=== PATIENT | female | born 1945 | race Caucasian/White ===

== ENCOUNTER 2019-08-15 15:21 | Inpatient (IN) ==
[2019-08-15] MEDS ORDERED: FUROSEMIDE 40 MG/4 ML VIAL IV STA (17:03)
[2019-08-15 17:07] LABS: Basophils % 0.6 % (0.0-0.8); Eosinophils # 0.2 10*3/uL (0.0-0.87); Eosinophils % 2.8 % (0.00-10.9); Hematocrit 23.4 VOL% (35.7-47.0); Hemoglobin 6.5 GM/DL (12.0-16.0); Immature Granulocytes % 0.6 %; Immature Granulocytes Absolute 0.03 #; Lymphocytes % 18.5 % (21.3-54.2); Mean Corpuscular HGB Conc 27.8 GM/DL (32-36); Mean Corpuscular Volume 92.5 FL (87-102); Mean Platelet Volume 12.4 FL (9.6-12.0); Monocytes % 12.3 % (1.7-12.7); Neutrophils % 65.2 % (38.7-73.9); Platelet Count 208 T/CUMM (130-400); Red Blood Count 2.53 MC/CUMM (3.8-5.5); Red Cell Distribution Width 15.9 % (9.3-17.3); White Blood Count 5.4 T/CUMM (4-12)
[2019-08-15 17:22] LABS: Albumin 2.5 G/DL (3.4-5.0); Bilirubin,Total 0.5 MG/DL (0.2-1.0); Osmolality,Calculated 288.5 MOS/KG (273-304)
[2019-08-15 17:35] LABS: Anisocytosis Slight; Macrocytosis Slight; Microcytosis Slight; Platelet Estimate Normal
[2019-08-15 17:36] LABS: Hypochromasia Slight
[2019-08-15 17:42] LABS: Apearance,Urine CLEAR (Clear); Bacteria,Urine Occasional /HPF (Few); Bilirubin,Urine Negative (Negative); Blood, Urine Negative (Negative); Glucose,Urine (UA) Negative (Negative); Hyaline Casts,Urine 2 /LPF (0-3); Ketones,Urine Negative (Negative); Nitrite,Urine Negative (Negative); Protein,Urine Negative; Squamous Epithelial Cell,Urine Occasional /HPF (0-10); Urine Color Yellow (Yellow); Urine Specific Gravity 1.008 (1.001-1.035); Urine Urobilinogen < 2.0 EU/DL (0.2-1.0)
[2019-08-15] MEDS ORDERED: ACETAMINOPHEN 325 MG TABLET PO PRN (17:45)
[2019-08-15] MEDS ORDERED: ONDANSETRON 4 MG/2 ML VIAL IV PRN (17:45)
[2019-08-15] MEDS ORDERED: DEXTROSE 50% 25 GM/50 ML VIAL IV PRN ×3 (17:45→18:20)
[2019-08-15] MEDS ORDERED: GLUCAGON 1 MG VIAL IM PRN ×3 (17:45→18:20)
[2019-08-15] MEDS ORDERED: SODIUM CHLORIDE 0.9% 1,000 ML IV PRN (17:48)
[2019-08-15] MEDS ORDERED: DEXTROSE 10% 250 ML BAG IV PRN (18:25)
[2019-08-15] MEDS: INSULIN LISPRO 100 UNIT/ML SUBCUT SCH (20:30)
[2019-08-15] MEDS ORDERED: carvediloL 3.125 MG TABLET PO SCH (21:00)
[2019-08-15] MEDS ORDERED: AMIODARONE 200 MG TABLET PO SCH (21:00)
[2019-08-15] MEDS: BENZONATATE 100 MG CAPSULE PO PRN (21:02)
[2019-08-16] MEDS: POTASSIUM CHLORIDE 20 MEQ TABLET PO PRN ×4 (00:29→06:12)
[2019-08-16 06:14] LABS: Basophils # 0.1 10*3/uL (0.0-0.2); Basophils % 0.8 % (0.0-0.8); Eosinophils # 0.1 10*3/uL (0.0-0.87); Eosinophils % 2.2 % (0.00-10.9); Hemoglobin 6.7 GM/DL (12.0-16.0); Immature Granulocytes % 0.3 %; Immature Granulocytes Absolute 0.02 #; Lymphocytes # 1.3 10*3/uL (1.4-4.0); Lymphocytes % 21.2 % (21.3-54.2); Mean Corpuscular HGB Conc 29.1 GM/DL (32-36); Mean Corpuscular Volume 90.2 FL (87-102); Mean Platelet Volume 12.1 FL (9.6-12.0); Monocytes % 13.4 % (1.7-12.7); Neutrophils % 62.1 % (38.7-73.9); Platelet Count 198 T/CUMM (130-400); Red Blood Count 2.55 MC/CUMM (3.8-5.5); Red Cell Distribution Width 15.2 % (9.3-17.3); White Blood Count 6.3 T/CUMM (4-12)
[2019-08-16 06:37] LABS: Calcium 7.7 MG/DL (8.5-10.1); Osmolality,Calculated 288.1 MOS/KG (273-304)
[2019-08-16] MEDS: INSULIN LISPRO 100 UNIT/ML SUBCUT SCH ×4 (07:54→20:26)
[2019-08-16] MEDS: LEVOTHYROXINE 75 MCG TABLET PO SCH (08:55)
[2019-08-16] MEDS: FUROSEMIDE 40 MG/4 ML VIAL IV SCH ×2 (09:00→16:41)
[2019-08-16 09:19] LABS: Hemoglobin 7.2 GM/DL (12.0-16.0)
[2019-08-16] MEDS: BENZONATATE 100 MG CAPSULE PO PRN (12:41)
[2019-08-17 06:05] LABS: Basophils % 0.5 % (0.0-0.8); Eosinophils # 0.2 10*3/uL (0.0-0.87); Eosinophils % 2.7 % (0.00-10.9); Hematocrit 24.1 VOL% (35.7-47.0); Hemoglobin 7.1 GM/DL (12.0-16.0); Immature Granulocytes % 0.2 %; Immature Granulocytes Absolute 0.01 #; Lymphocytes # 1.5 10*3/uL (1.4-4.0); Lymphocytes % 23.3 % (21.3-54.2); Mean Corpuscular HGB Conc 29.5 GM/DL (32-36); Mean Corpuscular Volume 88.9 FL (87-102); Mean Platelet Volume 11.6 FL (9.6-12.0); Monocytes % 14.2 % (1.7-12.7); Neutrophils % 59.1 % (38.7-73.9); Platelet Count 204 T/CUMM (130-400); Red Blood Count 2.71 MC/CUMM (3.8-5.5); Red Cell Distribution Width 15.7 % (9.3-17.3); White Blood Count 6.4 T/CUMM (4-12)
[2019-08-17 06:53] LABS: Calcium 8.3 MG/DL (8.5-10.1); Osmolality,Calculated 280.7 MOS/KG (273-304); Thyroid Stimulating Hormone 6.5 uIU/ml (0.358-3.74)
[2019-08-17] MEDS: INSULIN LISPRO 100 UNIT/ML SUBCUT SCH ×4 (07:40→20:03)
[2019-08-17] MEDS: LEVOTHYROXINE 75 MCG TABLET PO SCH (08:29)
[2019-08-17] MEDS: FUROSEMIDE 40 MG/4 ML VIAL IV SCH ×2 (08:30→16:30)
[2019-08-17] MEDS: guaiFENesin 200 MG/10 ML UDCUP PO PRN (10:50)
[2019-08-17] MEDS: PANTOPRAZOLE 40 MG VIAL IV SCH (12:30)
[2019-08-17] MEDS ORDERED: LOPERAMIDE 2 MG CAPSULE PO ONE (12:56)
[2019-08-17] MEDS: LOPERAMIDE 2 MG CAPSULE PO PRN (21:27)
[2019-08-18 07:13] LABS: Basophils % 0.4 % (0.0-0.8); Eosinophils # 0.2 10*3/uL (0.0-0.87); Eosinophils % 2.3 % (0.00-10.9); Hematocrit 26.7 VOL% (35.7-47.0); Hemoglobin 7.8 GM/DL (12.0-16.0); Immature Granulocytes % 0.4 %; Immature Granulocytes Absolute 0.03 #; Lymphocytes # 1.8 10*3/uL (1.4-4.0); Lymphocytes % 24.1 % (21.3-54.2); Mean Corpuscular HGB Conc 29.2 GM/DL (32-36); Mean Platelet Volume 12.3 FL (9.6-12.0); Neutrophils % 60.8 % (38.7-73.9); Platelet Count 262 T/CUMM (130-400); Red Cell Distribution Width 15.7 % (9.3-17.3); White Blood Count 7.4 T/CUMM (4-12)
[2019-08-18 07:29] LABS: Calcium 8.7 MG/DL (8.5-10.1); Osmolality,Calculated 280.7 MOS/KG (273-304)
[2019-08-18] MEDS: INSULIN LISPRO 100 UNIT/ML SUBCUT SCH ×4 (08:03→21:10)
[2019-08-18] MEDS: LACTATED RINGERS 1,000 ML IV SCH (09:08)
[2019-08-18] MEDS: FUROSEMIDE 40 MG/4 ML VIAL IV SCH (10:02)
[2019-08-18] MEDS: POTASSIUM CHLORIDE 20 MEQ TABLET PO PRN ×3 (10:02→16:00)
[2019-08-18] MEDS: PANTOPRAZOLE 40 MG VIAL IV SCH (10:02)
[2019-08-18] MEDS: LEVOTHYROXINE 75 MCG TABLET PO SCH (10:02)
[2019-08-18] MEDS ORDERED: BISACODYL 5 MG TABLET PO ONE (15:42)
[2019-08-18] MEDS ORDERED: POLYETHYLENE GLYCOL POWDER 255 GM BOTTLE PO ONE (15:43)
[2019-08-18] MEDS ORDERED: MAGNESIUM CITRATE 300 ML BOTTLE PO ONE (21:00)
[2019-08-19 07:21] LABS: Calcium 8.3 MG/DL (8.5-10.1); Osmolality,Calculated 281.5 MOS/KG (273-304)
[2019-08-19 07:34] LABS: Basophils % 0.5 % (0.0-0.8); Eosinophils # 0.1 10*3/uL (0.0-0.87); Hematocrit 27.4 VOL% (35.7-47.0); Hemoglobin 8.1 GM/DL (12.0-16.0); Immature Granulocytes % 0.4 %; Immature Granulocytes Absolute 0.02 #; Lymphocytes % 17.7 % (21.3-54.2); Mean Corpuscular HGB Conc 29.6 GM/DL (32-36); Mean Corpuscular Volume 90.1 FL (87-102); Mean Platelet Volume 12.1 FL (9.6-12.0); Monocytes % 10.9 % (1.7-12.7); Neutrophils % 68.5 % (38.7-73.9); Platelet Count 204 T/CUMM (130-400); Red Blood Count 3.04 MC/CUMM (3.8-5.5); Red Cell Distribution Width 15.8 % (9.3-17.3); White Blood Count 5.6 T/CUMM (4-12)
[2019-08-19] MEDS: INSULIN LISPRO 100 UNIT/ML SUBCUT SCH ×4 (08:21→21:26)
[2019-08-19] MEDS: LACTATED RINGERS 1,000 ML IV SCH (08:22)
[2019-08-19] MEDS ORDERED: LACTATED RINGERS 1,000 ML IV SCH (08:50)
[2019-08-19] MEDS ORDERED: LIDOCAINE 2% 5 ML VIAL ONE (08:51)
[2019-08-19] MEDS ORDERED: propofoL 200 MG/20 ML VIAL IV ONE (08:51)
[2019-08-19] MEDS: LEVOTHYROXINE 75 MCG TABLET PO SCH (10:13)
[2019-08-19] MEDS: LOPERAMIDE 2 MG CAPSULE PO PRN (10:14)
[2019-08-19] MEDS: POTASSIUM CHLORIDE 20 MEQ TABLET PO PRN ×4 (10:14→17:19)
[2019-08-19] MEDS: PANTOPRAZOLE 40 MG VIAL IV SCH (10:14)
[2019-08-19] MEDS: FUROSEMIDE 40 MG TABLET PO SCH (10:14)
[2019-08-19] MEDS: BENZONATATE 100 MG CAPSULE PO PRN (15:42)
[2019-08-19] MEDS: guaiFENesin 200 MG/10 ML UDCUP PO PRN (21:31)
[2019-08-20 06:38] LABS: Calcium 7.9 MG/DL (8.5-10.1); Osmolality,Calculated 282.5 MOS/KG (273-304)
[2019-08-20 08:17] LABS: Basophils % 0.6 % (0.0-0.8); Eosinophils # 0.1 10*3/uL (0.0-0.87); Eosinophils % 1.9 % (0.00-10.9); Hematocrit 24.6 VOL% (35.7-47.0); Hemoglobin 7.1 GM/DL (12.0-16.0); Immature Granulocytes % 0.5 %; Immature Granulocytes Absolute 0.03 #; Lymphocytes # 1.3 10*3/uL (1.4-4.0); Lymphocytes % 21.2 % (21.3-54.2); Mean Corpuscular HGB Conc 28.9 GM/DL (32-36); Mean Corpuscular Volume 91.4 FL (87-102); Mean Platelet Volume 12.1 FL (9.6-12.0); Neutrophils % 63.8 % (38.7-73.9); Platelet Count 204 T/CUMM (130-400); Red Blood Count 2.69 MC/CUMM (3.8-5.5); Red Cell Distribution Width 15.8 % (9.3-17.3); White Blood Count 6.3 T/CUMM (4-12)
[2019-08-20 08:37] LABS: Eosinophils 2 % (0-10); Hypochromasia 1+; Lymphocytes 18 % (20-55); Platelet Estimate Adequate; Segmented Neutrophils 67 % (50-85); Total Cells Counted 100
[2019-08-20 08:38] LABS: Ovalocytes Slight
[2019-08-20] MEDS: INSULIN LISPRO 100 UNIT/ML SUBCUT SCH ×3 (08:48→16:45)
[2019-08-20] MEDS: guaiFENesin 200 MG/10 ML UDCUP PO PRN (08:49)
[2019-08-20] MEDS ORDERED: SODIUM CHLORIDE 0.9% 1,000 ML IV PRN (08:57)
[2019-08-20] MEDS: PANTOPRAZOLE 40 MG VIAL IV SCH (09:15)
[2019-08-20] MEDS: FUROSEMIDE 40 MG TABLET PO SCH (09:16)
[2019-08-20] MEDS: LEVOTHYROXINE 75 MCG TABLET PO SCH (09:16)
[2019-08-20] MEDS ORDERED: propofoL 200 MG/20 ML VIAL IV ONE (10:00)
[2019-08-20] MEDS ORDERED: LIDOCAINE 2% 5 ML VIAL ONE (10:00)
[2019-08-20 16:42] LABS: Hematocrit 29.8 VOL% (35.7-47.0)
[2019-08-20 16:44] LABS: Hemoglobin 8.7 GM/DL (12.0-16.0)
[2019-08-20 16:49] VITALS: BP 156/58
== END 2019-08-20 17:53 | disposition home or self-care (01) | DRG 377 ==
LOC: N.ED 15:21 → N.EDINP 17:45 → SUATTDRO 17:45 → N.3E 18:35
PROVIDERS: ADMIT Internal Medicine; ATTEND Family Medicine

== ENCOUNTER 2021-12-20 16:11 | Inpatient (IN) ==
[2021-12-20] MEDS ORDERED: PANTOPRAZOLE 40 MG VIAL IV STA (18:31)
[2021-12-20] MEDS ORDERED: SODIUM CHLORIDE 0.9% 500 ML IV STA (18:31)
[2021-12-20] MEDS ORDERED: ONDANSETRON 4 MG/2 ML VIAL IV STA (18:31)
[2021-12-20 18:55] LABS: Basophils % 0.4 % (0.0-0.8); Eosinophils % 0.6 % (0.00-10.9); Hematocrit 39.4 VOL% (35.7-47.0); Immature Granulocytes % 0.2 %; Immature Granulocytes Absolute 0.01 #; Lymphocytes # 1.2 10*3/uL (1.4-4.0); Lymphocytes % 21.5 % (21.3-54.2); Mean Corpuscular Volume 98.7 FL (87-102); Mean Platelet Volume 12.8 FL (9.6-12.0); Monocytes # 0.2 10*3/uL (0.11-0.8); Monocytes % 4.2 % (1.7-12.7); Neutrophils % 73.1 % (38.7-73.9); Platelet Count 121 T/CUMM (130-400); Red Blood Count 3.99 MC/CUMM (3.8-5.5); Red Cell Distribution Width 12.4 % (9.3-17.3); White Blood Count 5.4 T/CUMM (4-12)
[2021-12-20 19:11] LABS: RBC,Urine 1 /HPF (0-4)
[2021-12-20 19:12] LABS: Bilirubin,Urine Negative (Negative); Blood, Urine Negative (Negative); Glucose,Urine (UA) Negative (Negative); Ketones,Urine Negative (Negative); Nitrite,Urine Negative (Negative); Protein,Urine Trace mg/dL (Negative); Urine Appearance Clear (Clear); Urine Color Yellow (Yellow); Urine Urobilinogen 0.2 eU/dL (<2.0)
[2021-12-20] MEDS ORDERED: LABETALOL 20 MG/4 ML SYRINGE IV STA (19:12)
[2021-12-20 19:15] LABS: Albumin 3.7 G/DL (3.4-5.0); Bilirubin,Total 0.6 MG/DL (0.20-1.00); Calcium 9.2 MG/DL (8.5-10.1); Potassium 4.3 MMOL/L (3.5-5.1); Total Protein 7.2 G/DL (6.4-8.2)
[2021-12-20] MEDS ORDERED: HYDROmorphone 1 MG/1 ML SYRINGE IV PRN (22:20)
[2021-12-20] MEDS ORDERED: ACETAMINOPHEN 325 MG TABLET PO PRN (22:20)
[2021-12-20] MEDS ORDERED: ONDANSETRON 4 MG/2 ML VIAL IV PRN (22:20)
[2021-12-20] MEDS: PIPERACILLIN/TAZOBACTAM 3,375 MG in SODIUM CHLORIDE 0.9% 100 ML IV SCH (23:18)
[2021-12-20] MEDS: DORZOLAMIDE/TIMOLOL OPH SOLN 10 ML BOTTLE BOTH EYES SCH (23:18)
[2021-12-20] MEDS: SODIUM CHLORIDE 0.9% 1,000 ML IV SCH (23:18)
[2021-12-20] MEDS: FERROUS SULFATE 325 MG TABLET PO SCH (23:18)
[2021-12-21] MEDS: LEVOTHYROXINE 75 MCG TABLET PO SCH (05:48)
[2021-12-21] MEDS: PIPERACILLIN/TAZOBACTAM 3,375 MG in SODIUM CHLORIDE 0.9% 100 ML IV SCH ×3 (05:48→21:20)
[2021-12-21 06:05] LABS: Basophils % 0.5 % (0.0-0.8); Eosinophils # 0.1 10*3/uL (0.0-0.87); Eosinophils % 2.9 % (0.00-10.9); Hematocrit 31.5 VOL% (35.7-47.0); Hemoglobin 10.2 GM/DL (12.0-16.0); Immature Granulocytes % 0.3 %; Immature Granulocytes Absolute 0.01 #; Lymphocytes # 1.9 10*3/uL (1.4-4.0); Lymphocytes % 50.9 % (21.3-54.2); Mean Corpuscular HGB Conc 32.4 GM/DL (32-36); Mean Corpuscular Volume 100.3 FL (87-102); Mean Platelet Volume 11.6 FL (9.6-12.0); Monocytes # 0.4 10*3/uL (0.11-0.8); Monocytes % 9.8 % (1.7-12.7); Neutrophils % 35.6 % (38.7-73.9); Platelet Count 105 T/CUMM (130-400); Red Blood Count 3.14 MC/CUMM (3.8-5.5); Red Cell Distribution Width 12.6 % (9.3-17.3); White Blood Count 3.8 T/CUMM (4-12)
[2021-12-21 06:23] LABS: Albumin 2.6 G/DL (3.4-5.0); Bilirubin,Total 0.8 MG/DL (0.20-1.00); Calcium 8.6 MG/DL (8.5-10.1); Osmolality,Calculated 288.6 MOS/KG (273-304); Potassium 4.1 MMOL/L (3.5-5.1); Total Protein 5.6 G/DL (6.4-8.2)
[2021-12-21 06:35] LABS: Eosinophils 3 % (0-10); Lymphocytes 52 % (20-55); Total Cells Counted 100
[2021-12-21 06:36] LABS: Platelet Estimate Decreased
[2021-12-21] MEDS: PANTOPRAZOLE 40 MG VIAL IV SCH (08:16)
[2021-12-21] MEDS: CYANOCOBALAMIN 500 MCG TABLET PO SCH (08:18)
[2021-12-21] MEDS: FERROUS SULFATE 325 MG TABLET PO SCH ×2 (08:18→20:45)
[2021-12-21] MEDS: MULTIVITAMIN (OCUVITE) TABLET PO SCH (08:18)
[2021-12-21] MEDS: amLODIPine 5 MG TABLET PO SCH (08:18)
[2021-12-21] MEDS: DORZOLAMIDE/TIMOLOL OPH SOLN 10 ML BOTTLE BOTH EYES SCH ×2 (08:20→20:45)
[2021-12-21] MEDS: SODIUM CHLORIDE 0.9% 1,000 ML IV SCH (08:45)
[2021-12-21] MEDS ORDERED: RIVAROXABAN 20 MG TABLET PO SCH (09:00)
[2021-12-21] MEDS ORDERED: HYDROmorphone 1 MG/1 ML SYRINGE IV PRN ×2 (09:27)
[2021-12-21] MEDS: LACTATED RINGERS 1,000 ML IV SCH ×2 (10:47→22:42)
[2021-12-21] MEDS: ONDANSETRON 4 MG/2 ML VIAL IV PRN (18:13)
[2021-12-22] MEDS: LEVOTHYROXINE 75 MCG TABLET PO SCH (05:09)
[2021-12-22] MEDS: PIPERACILLIN/TAZOBACTAM 3,375 MG in SODIUM CHLORIDE 0.9% 100 ML IV SCH ×3 (05:35→22:17)
[2021-12-22 07:21] LABS: Basophils % 1.1 % (0.0-0.8); Eosinophils # 0.1 10*3/uL (0.0-0.87); Hematocrit 32.9 VOL% (35.7-47.0); Hemoglobin 10.7 GM/DL (12.0-16.0); Immature Granulocytes % 0.3 %; Immature Granulocytes Absolute 0.01 #; Lymphocytes # 1.5 10*3/uL (1.4-4.0); Lymphocytes % 42.7 % (21.3-54.2); Mean Corpuscular HGB Conc 32.5 GM/DL (32-36); Mean Platelet Volume 12.4 FL (9.6-12.0); Monocytes # 0.4 10*3/uL (0.11-0.8); Neutrophils % 41.9 % (38.7-73.9); Platelet Count 113 T/CUMM (130-400); Red Blood Count 3.29 MC/CUMM (3.8-5.5); Red Cell Distribution Width 12.5 % (9.3-17.3); White Blood Count 3.5 T/CUMM (4-12)
[2021-12-22] MEDS: LACTATED RINGERS 1,000 ML IV SCH ×2 (07:28→15:00)
[2021-12-22 07:35] LABS: Calcium 8.5 MG/DL (8.5-10.1); Osmolality,Calculated 288.7 MOS/KG (273-304); Potassium 4.4 MMOL/L (3.5-5.1)
[2021-12-22] MEDS: DORZOLAMIDE/TIMOLOL OPH SOLN 10 ML BOTTLE BOTH EYES SCH ×2 (08:36→20:44)
[2021-12-22] MEDS: PANTOPRAZOLE 40 MG VIAL IV SCH (08:36)
[2021-12-22] MEDS: MULTIVITAMIN (OCUVITE) TABLET PO SCH (08:37)
[2021-12-22] MEDS: amLODIPine 5 MG TABLET PO SCH (08:37)
[2021-12-22] MEDS: FERROUS SULFATE 325 MG TABLET PO SCH ×2 (08:37→20:44)
[2021-12-22] MEDS: CYANOCOBALAMIN 500 MCG TABLET PO SCH (08:37)
[2021-12-22] MEDS ORDERED: ROCURONIUM 50 MG/5 ML VIAL IV ONE (12:17)
[2021-12-22] MEDS ORDERED: DESFLURANE 1 UNIT/15 MINUTE INH ONE ×2 (12:17→13:41)
[2021-12-22] MEDS ORDERED: ONDANSETRON 4 MG/2 ML VIAL ONE (12:17)
[2021-12-22] MEDS ORDERED: propofoL 200 MG/20 ML VIAL IV ONE (12:17)
[2021-12-22] MEDS ORDERED: fentaNYL 100 MCG/2 ML VIAL ONE (12:17)
[2021-12-22] MEDS ORDERED: LIDOCAINE 1%/EPI INJ 20 ML VIAL ONE (12:25)
[2021-12-22] MEDS ORDERED: BUPIVACAINE MPF 0.25% 10 ML VIAL ONE (12:25)
[2021-12-22] MEDS ORDERED: GLYCOPYRROLATE 0.4 MG/2 ML VIAL ONE (13:41)
[2021-12-22] MEDS ORDERED: NEOSTIGMINE 10 MG/10 ML VIAL ONE (13:42)
[2021-12-22] MEDS ORDERED: ONDANSETRON 4 MG/2 ML VIAL IV PRN (14:31)
[2021-12-22] MEDS ORDERED: MEPERIDINE 25 MG/1 ML VIAL IV PRN (14:31)
[2021-12-22] MEDS ORDERED: MEPERIDINE 50 MG/1 ML VIAL ONE (14:32)
[2021-12-22] MEDS: ONDANSETRON 4 MG/2 ML VIAL IV PRN (19:46)
[2021-12-23] MEDS: LACTATED RINGERS 1,000 ML IV SCH (05:01)
[2021-12-23] MEDS: LEVOTHYROXINE 75 MCG TABLET PO SCH (05:24)
[2021-12-23] MEDS: PIPERACILLIN/TAZOBACTAM 3,375 MG in SODIUM CHLORIDE 0.9% 100 ML IV SCH (05:26)
[2021-12-23 07:38] VITALS: BP 162/56
[2021-12-23] MEDS: CYANOCOBALAMIN 500 MCG TABLET PO SCH (09:33)
[2021-12-23] MEDS: MULTIVITAMIN (OCUVITE) TABLET PO SCH (09:33)
[2021-12-23] MEDS: FERROUS SULFATE 325 MG TABLET PO SCH (09:33)
[2021-12-23] MEDS: PANTOPRAZOLE 40 MG VIAL IV SCH (09:34)
[2021-12-23] MEDS: DORZOLAMIDE/TIMOLOL OPH SOLN 10 ML BOTTLE BOTH EYES SCH (09:38)
[2021-12-23] MEDS: amLODIPine 5 MG TABLET PO SCH (10:49)
[2021-12-24] MEDS ORDERED: amLODIPine 10 MG TABLET PO SCH (09:00)
== END 2021-12-23 11:30 | disposition home or self-care (01) | DRG 351 ==
LOC: N.EDINP 16:11 → N.ED 16:11 → N.3E 22:11
PROVIDERS: ADMIT Surgery; ATTEND Surgery